=== PATIENT | female | born 1970 | race Caucasian/White ===

== ENCOUNTER → 2016-06-30 | Outpatient (CLI) | payer BC ==
[~2016-06-30] MED LIST: DEPAKOTE PO; MEDROL DOSEPAK4 MG PO; MULTI-DAY1 TAB PO; SYNTHROID0.05 MG DOB
--- NOTE | ~2016-06-30 | CR230 ---
[facility] A Service of [facility] & [facility] / [facility] RADIOLOGY TEXT RESULTS PATIENT: KRISTINE ARANA LOCATION: [facility] : 74 UNIT #: [id number] AGE: [address]: DANIELITO CAMARA MD SEX: F ORDER DR: [id number] [facility] [address] [place], [place] [address] [id number] O MR#: [id number] Acc #: [id number] NAME: KRISTINE ARANA : 1970 SEX: F STUDY DATE/TIME: 06/30/2016 17:08 UNIT: [facility] ROOM: STUDY DESCRIPTION: CR Shoulder Min 2 View Rt Attending Physician: Danielito Camara M.D. Referring Physician: Danielito Camara M.D. Ordering Physician: Danielito Camara M.D. Primary Care Physician: Danielito Camara M.D. MEDICAL IMAGING REPORT This report is preliminary unless electronic signature is present EXAM Right shoulder radiograph. DATE OF EXAM 06/30/2016 INDICATIONS Right shoulder pain for 5 months. FINDINGS 3 views of the right shoulder without comparison. There is no fracture or dislocation. Alignment is anatomic. Glenohumeral and acromioclavicular articulations are normal. IMPRESSION Negative right shoulder. Dictated by... Maxx Barros M.D. THIS IS AN ELECTRONICALLY VERIFIED REPORT Maxx Barros M.D. at 07/01/2016 7:52 AM SHIRA/tatianna TD: 06/30/2016 21:29 JOB #: [id number] MEDICAL IMAGING REPORT Page 1 of 1 COPY
== END | disposition home or self-care (01) ==
LOC: CRAD 16:54
DX: M25.511 Pain in right shoulder (principal)
CPT/HCPCS: 73030